=== PATIENT | male | born 1940 | race Caucasian/White ===

== ENCOUNTER 2021-10-19 16:11 | Emergency (ER) | payer MEDICARE, BC, SELFPAY ==
--- NOTE | ~2021-10-19 | XR_ITS ---
EXAMINATION: XR CHEST CLINICAL INFORMATION: Cough COMPARISON: None TECHNIQUE: Frontal view of the chest was obtained. FINDINGS: Lungs are markedly hypoinflated. The right hemidiaphragm is elevated. Surgical clips noted in the left axilla. Left basilar atelectasis is seen. No consolidations, effusions or lung masses are seen. XR/XR chest 1V IMPRESSION: No acute intrathoracic disease. Hypoinflated lungs with elevated right hemidiaphragm.
--- NOTE | 2021-10-19 16:22 | ED_ITS ---
HPI - Back Pain/Injury General Chief Complaint: Back Pain/Injury Stated Complaint: BACK PAIN FROM TREMORS D/T PARKINSONS Time Seen by Provider: 10/19/21 16:18 Source: patient and family Mode of arrival: EMS Limitations: no limitations History of Present Illness HPI Narrative: Patient history of chronic back pain and Parkinson disease complaining of more spasm and low back pain patient already on OxyContin 20 mg 3 times a day and oxycodone every 6 hours no fall no injury no urinary complaints no fever no chills patient seen by a neurologist last week and pramipexole was stopped because of hallucination Related Data Previous Rx's Medication Instructions Recorded carisoprodol 350 mg tablet (Soma) 350 mg PO TID PRN #20 tab 10/19/21 Allergies Allergy/AdvReac Type Severity Reaction Status Date / Time meperidine [Demerol] Allergy Unknown Agitated Verified 10/19/21 16:28 penicillamine [Cuprimine] Allergy Unknown Agitated Verified 10/19/21 16:28 Review of Systems Review of Systems: Yes all other systems are reviewed and are negative [facility] Social History Social History Alcohol intake: unknown Patient Tobacco Use Status: Never used Tobacco Use of substances other than those prescribed or required for medical reasons: No Advance Directives: No Advance Directives Information Provided: No Physical Exam Vital Signs: Vital Signs: Last Vital Signs Temp 97.4 F 10/19/21 18:00 Pulse 74 10/19/21 18:00 Resp 18 10/19/21 18:00 BP 184/97 H 10/19/21 18:00 Pulse Ox 98 10/19/21 18:00 BMI result Body Mass Index 28.8 Appearance: Alert. Oriented X3. No acute distress. Hard of hearing Eyes: No pallor or icterus ENT: Pharynx normal. Oral Mucosa moist Neck: Normal inspection. Neck supple. CVS: Normal heart rate and rhythm. Pulses normal. Respiratory: No respiratory distress. Equal air entry bilateral, no wheezing/rales/rhonchi Abdomen: Soft and nontender. Bowel sounds are present, no mass palpable, no CVA tenderness Skin: Skin warm and dry. Normal skin color. Normal skin turgor. Extremities: No lower extremity edema. No calf tenderness back: Diffuse low back tenderness no step-off sign no focal spinal tenderness no skin changes or rash Neuro: Oriented X 3. No motor deficit. MDM - Back Pain/Injury MDM Narrative Medical decision making narrative: Patient chronic low back pain on pain management comes here for increased lower abdominal pain without any history of trauma or fall pain is nonfocal diffuse area lab workup of urine negative patient felt better after Oxycodone and Soma, will discharge patient home on Soma Lab Data Attestation: I reviewed the patient's lab results. Result diagrams: 10/19/21 17:50 10/19/21 17:50 Labs: Lab Results 10/19/21 10/19/21 10/19/21 Range/Units 17:50 17:50 19:30 WBC 6.6 (4.8-10.8) X10*3/uL RBC 4.17 L (4.60-5.80) X10*6/uL Hgb 12.1 L (14.0-18.0) g/dl Hct 37.3 L (42.0-52.0) % MCV 89.4 (80.0-98.0) fL MCH 29.0 (27.0-33.0) pg MCHC 32.4 (31.0-36.0) g/dl RDW 13.4 (11.0-16.0) % Plt Count 286 (160-400) X10*3/uL MPV 9.3 L (9.4-12.4) fL Immature Gran % (Auto) 0.2 (0.0-0.4) % Neut % (Auto) 70.4 (45-73) % Lymph % (Auto) 17.8 L (20-40) % [place] % (Auto) 6.7 (2-11) % Eos % (Auto) 4.1 H (0-4) % Baso % (Auto) 0.8 (0-2) % Lymph # (Auto) 1.2 (1.2-4.9) X10*3/uL [place] # (Auto) 0.4 (0.1-1.2) X10*3/uL Eos # (Auto) 0.3 (0.0-0.4) X10*3/uL Baso # (Auto) 0.1 (0.0-0.2) X10*3/uL Abs Immat Gran (auto) 0.01 (0.00-0.03) X10*3/uL Absolute Neuts (auto) 4.6 (2.0-8.3) x10*3/uL Absolute Nucleated RBC 0.000 (0.0-0.012) X10*3/uL Nucleated RBC % (auto) 0.0 (0.0-0.2) /100WBC Sodium 141 (135-145) mmol/L Potassium 3.9 (3.3-5.1) mmol/L Chloride 103 (96-108) mmol/L Carbon Dioxide 31 H (22-29) mmol/L Anion Gap 11 L (12-20) BUN 29 H (9-16) mg/dL Creatinine 1.06 (0.5-1.4) mg/dL Estim Creat Clear Calc 54.6 Estimated GFR > 60 Random Glucose 133 H (60-115) mg/dL Calcium 10.1 (8.4-10.2) mg/dL Magnesium 1.9 (1.6-2.6) mg/dL Total Bilirubin 0.5 (0.0-1.0) mg/dL Direct Bilirubin 0.3 (0.0-0.5) mg/dL AST 15 (5-37) U/L ALT 6 (0-40) U/L Alkaline Phosphatase 105 (39-117) U/L Total Creatine Kinase 47 (38-174) U/L Total Protein 7.0 (6.5-8.0) g/dL Albumin 4.1 (3.5-5.0) g/dL Urine Color YELLOW Urine Appearance CLEAR Urine pH 6.5 (5.0-8.0) Ur Specific [place] 1.020 (1.005-1.025) Urine Protein NEG (NEG-TRACE) MG/DL Urine Glucose (UA) NEG (NEG) MG/DL Urine Ketones NEG (NEG) MG/DL Urine Blood NEG (NEG) Urine Nitrite NEG (NEG) Ur Leukocyte Esterase NEG (NEG) Discharge Plan Discharge Clinical Impression: Chronic low back pain Qualifiers: Back pain laterality: bilateral Sciatica presence: with sciatica Sciatica laterality: sciatica of right side Qualified Code(s): M54.41 - Lumbago with sciatica, right side Patient Disposition: Home, Self-Care Instructions: Chronic Back Pain (DC) Additional Instructions: Continue pain medication as prescribed by PCP and pain clinic Start taking Soma for worsening of low back pain Follow-up with your PCP/Pain Clinic Prescriptions: New carisoprodol [Soma] 350 mg tablet 350 mg PO TID PRN (Reason: muscle pain) Qty: 20 RF: 0 Interventions: ED Discharge Assessment Last Done: 10/19/21 20:25 Discharge Date/Time: 10/19/21 20:27
[2021-10-19 16:29] VITALS: BP 102/51; BP 140/80; PULSE 76; PULSE 79; RESP 20; TEMP 36.5; O2SAT 98; BMI 28.8
--- NOTE | 2021-10-19 16:43 | PC.NURSE ---
PEDAL PULSES BY DOPPLER.
[2021-10-19 17:57] LABS: MANUAL DIFF FLAG NO
[2021-10-19 17:59] LABS: Basophils Absolute Auto 0.1 X10*3/uL (0.0-0.2); Basophils Percent Auto 0.8 % (0-2); Eosinophils Absolute Auto 0.3 X10*3/uL (0.0-0.4); Eosinophils Percent Auto 4.1 % (0-4); Hematocrit 37.3 % (42.0-52.0); Hemoglobin 12.1 g/dl (14.0-18.0); Imm Gran Abs Auto 0.01 X10*3/uL (0.00-0.03); Imm Gran Pct Auto 0.2 % (0.0-0.4); Lymphocytes Absolute Auto 1.2 X10*3/uL (1.2-4.9); Lymphocytes Percent Auto 17.8 % (20-40); Mean Corpuscular HGB Conc 32.4 g/dl (31.0-36.0); Mean Corpuscular Volume 89.4 fL (80.0-98.0); Mean Platelet Volume 9.3 fL (9.4-12.4); Monocytes Absolute Auto 0.4 X10*3/uL (0.1-1.2); Monocytes Percent Auto 6.7 % (2-11); Neutrophils Absolute Auto 4.6 x10*3/uL (2.0-8.3); Neutrophils Percent Auto 70.4 % (45-73); Platelet Count 286 X10*3/uL (160-400); Red Blood Count 4.17 X10*6/uL (4.60-5.80); Red Cell Distribution Width 13.4 % (11.0-16.0); White Blood Count 6.6 X10*3/uL (4.8-10.8)
[2021-10-19 18:00] VITALS: BP 184/97; PULSE 74; RESP 18; TEMP 36.3; O2SAT 98
[2021-10-19 18:14] LABS: Alanine Aminotransferase 6 U/L (0-40); Albumin Level 4.1 g/dL (3.5-5.0); Alkaline Phosphatase 105 U/L (39-117); Anion Gap 11 (12-20); Aspartate Amino Transferase 15 U/L (5-37); Bilirubin Direct 0.3 mg/dL (0.0-0.5); Bilirubin Total 0.5 mg/dL (0.0-1.0); Blood Urea Nitrogen 29 mg/dL (9-16); Calcium 10.1 mg/dL (8.4-10.2); Carbon Dioxide 31 mmol/L (22-29); Chloride 103 mmol/L (96-108); Creatinine Clr Calc Pharmacy 54.6; Estimated Glomerular Filt Rate > 60; Glucose Random 133 mg/dL (60-115); Magnesium 1.9 mg/dL (1.6-2.6); Potassium 3.9 mmol/L (3.3-5.1); Sodium 141 mmol/L (135-145)
[2021-10-19] MEDS: oxyCODONE HCl Immed Release 5 MG TABLET 10 MG PO (18:14)
[2021-10-19] MEDS: carisoprodoL 350 MG TABLET PO (18:14)
--- NOTE | 2021-10-19 18:22 | PC.NURSE ---
As per pt's , pt is due for his parkingson's medications. MD Headley made aware and states pt may take those medications.
[2021-10-19 19:44] LABS: Appearance Urine CLEAR; Color Urine YELLOW; Glucose Urine UA NEG (NEG); Leukocyte Esterase Urine NEG (NEG); Nitrite Urine NEG (NEG); PH 6.5 (5.0-8.0); Urine Blood NEG (NEG); Urine Ketones NEG (NEG); Urine Protein NEG (NEG-TRACE)
--- NOTE | 2021-10-19 20:26 | PC.NURSE ---
pt reports no longer having pain. Reviewed discharge plan with and medications. Pt and verbalized understanding.
== END 2021-10-19 20:27 | disposition home or self-care (01) ==
PROVIDERS: Emergency Provider Internal Medicine; PCP Internal Medicine
DX: M54.41 Lumbago with sciatica, right side (principal); G89.29 Other chronic pain; G20 Parkinson's disease; Z79.891 Long term (current) use of opiate analgesic
CPT/HCPCS: 36415; 71045; 80048; 80076; 81003; 82550; 83735; 85025; 99283; 99284

== ENCOUNTER 2022-05-04 22:39 | Inpatient (IN) | payer MEDICARE, BC, SELFPAY ==
--- NOTE | ~2022-05-04 | XR_ITS ---
EXAMINATION: XR hip LT min 2V, XR chest 1V CLINICAL INFORMATION: Reason for Exam fall COMPARISON: None. TECHNIQUE: Portable AP chest; AP pelvis and 2 view series left hip FINDINGS: Left hip: A comminuted intertrochanteric fracture of the left femur is noted with varus angulation. No femoral head dislocation identified. The posterior wall the acetabulum appears intact. Diffuse osteopenia. No erosive osseous lesions. Multilevel chronic spondylosis of the visualized lower lumbar spine. Numerous pelvic phleboliths. Partially visualized electrostimulation generator in projection with the lower abdominal quadrants. CHEST: A right upper extremity PICC terminates in the region of the cavoatrial junction. Thoracic epidural electrostimulation leads terminating projection with the lower thoracic spine. The heart size is normal. Moderate aortic calcific atherosclerosis. Elevation of the right hemidiaphragm. No effusions or pneumothoraces. No focal pulmonary consolidation. Left axillary lymph node dissection clips. XR/XR hip LT min 2V IMPRESSION: Left hip: *Comminuted intertrochanteric fracture with varus angulation. *Diffuse osteopenia. CHEST: *No acute cardiopulmonary abnormalities. *Right upper extremity PICC terminating at the cavoatrial junction.
--- NOTE | ~2022-05-04 | CT_ITS ---
EXAMINATION: CT CERVICAL SPINE WITHOUT CONTRAST; UNENHANCED CT OF THE HEAD. CLINICAL INFORMATION: Fall. COMPARISON: None TECHNIQUE: Routine unenhanced CT of the head with multiple coronal and sagittal reformatted images; routine unenhanced CT of the cervical spine with multiple coronal and sagittal reformatted images. This CT examination was performed using dose optimization techniques as appropriate, variously including the following: *Automated exposure control *Adjustment of mA and/or kV according to patient size (this includes techniques or standardized protocols for targeted exams where dose is matched to indication/reason for exam; i.e. extremities or head) *Use of iterative reconstruction technique DLP: 1314 mGy-cm FINDINGS: CT head: Moderate diffuse commensurate prominence of ventricles and sulci. No intrarenal hemorrhage, tumors or definitive acute infarcts. Mild periventricular white matter patchy hypodensities. Segmental calcific atherosclerosis of the cavernous portions of the internal carotid arteries. Bilateral ocular lens extractions. No significant opacification of the visualized paranasal sinuses, mastoid air cells and middle ear cavities. CT cervical spine: No fractures or acute appearing subluxations noted. Multilevel intervertebral disc space narrowing, posterior endplate osteophytosis and facet hypertrophic changes. Mild biapical pleural parenchymal scarring noted in the visualized lung apices. Moderate bilateral carotid bulb calcific atherosclerosis. Partially visualized right upper extremity PICC. CT/CT cervical spine wo con IMPRESSION: Unenhanced CT the head: *No acute intercranial abnormalities. CT cervical spine: *No acute abnormalities. *Multilevel chronic spondylosis.
--- NOTE | ~2022-05-04 | CT_ITS ---
EXAMINATION: CT CERVICAL SPINE WITHOUT CONTRAST; UNENHANCED CT OF THE HEAD. CLINICAL INFORMATION: Fall. COMPARISON: None TECHNIQUE: Routine unenhanced CT of the head with multiple coronal and sagittal reformatted images; routine unenhanced CT of the cervical spine with multiple coronal and sagittal reformatted images. This CT examination was performed using dose optimization techniques as appropriate, variously including the following: *Automated exposure control *Adjustment of mA and/or kV according to patient size (this includes techniques or standardized protocols for targeted exams where dose is matched to indication/reason for exam; i.e. extremities or head) *Use of iterative reconstruction technique DLP: 1314 mGy-cm FINDINGS: CT head: Moderate diffuse commensurate prominence of ventricles and sulci. No intrarenal hemorrhage, tumors or definitive acute infarcts. Mild periventricular white matter patchy hypodensities. Segmental calcific atherosclerosis of the cavernous portions of the internal carotid arteries. Bilateral ocular lens extractions. No significant opacification of the visualized paranasal sinuses, mastoid air cells and middle ear cavities. CT cervical spine: No fractures or acute appearing subluxations noted. Multilevel intervertebral disc space narrowing, posterior endplate osteophytosis and facet hypertrophic changes. Mild biapical pleural parenchymal scarring noted in the visualized lung apices. Moderate bilateral carotid bulb calcific atherosclerosis. Partially visualized right upper extremity PICC. CT/CT head/brain wo con IMPRESSION: Unenhanced CT the head: *No acute intercranial abnormalities. CT cervical spine: *No acute abnormalities. *Multilevel chronic spondylosis.
--- NOTE | ~2022-05-04 | XR_ITS ---
EXAMINATION: XR hip LT min 2V, XR chest 1V CLINICAL INFORMATION: Reason for Exam fall COMPARISON: None. TECHNIQUE: Portable AP chest; AP pelvis and 2 view series left hip FINDINGS: Left hip: A comminuted intertrochanteric fracture of the left femur is noted with varus angulation. No femoral head dislocation identified. The posterior wall the acetabulum appears intact. Diffuse osteopenia. No erosive osseous lesions. Multilevel chronic spondylosis of the visualized lower lumbar spine. Numerous pelvic phleboliths. Partially visualized electrostimulation generator in projection with the lower abdominal quadrants. CHEST: A right upper extremity PICC terminates in the region of the cavoatrial junction. Thoracic epidural electrostimulation leads terminating projection with the lower thoracic spine. The heart size is normal. Moderate aortic calcific atherosclerosis. Elevation of the right hemidiaphragm. No effusions or pneumothoraces. No focal pulmonary consolidation. Left axillary lymph node dissection clips. XR/XR chest 1V IMPRESSION: Left hip: *Comminuted intertrochanteric fracture with varus angulation. *Diffuse osteopenia. CHEST: *No acute cardiopulmonary abnormalities. *Right upper extremity PICC terminating at the cavoatrial junction.
--- NOTE | ~2022-05-04 | FL_ITS ---
EXAMINATION: XR FLUOROSCOPY WITH IMAGES CLINICAL INFORMATION: Hip fracture COMPARISON: Previous x-ray from earlier the same day TECHNIQUE: Fluoroscopy performed by Dr. Chintan Pearce. Fluoroscopy time: 0.6 minutes DAP: 0.3 mGycm2 Images: 4 FINDINGS: There is an intramedullary lainey and compression/lag screw and single distal cortical screw transfixing the left femoral intertrochanteric fracture with improved alignment. FL/FL guidance in OR IMPRESSION: Fluoroscopic guidance for ORIF of left femoral intertrochanteric fracture.
[2022-05-04 23:03] VITALS: BP 108/64; BP 126/63; PULSE 71; PULSE 78; RESP 18; TEMP 36.4; O2SAT 96; O2SAT 97; BMI 23.8
--- NOTE | 2022-05-04 23:16 | ECG_ITS ---
Test Reason : PRE OP Blood Pressure : / mmHG Vent. Rate : 071 BPM Atrial Rate : 071 BPM P-R Int : 146 ms QRS Dur : 092 ms QT Int : 398 ms P-R-T Axes : 000 040 060 degrees QTc Int : 432 ms Sinus rhythm with marked sinus arrhythmia Otherwise normal ECG No previous ECGs available Referred By: Janiya Galindo Electronically Signed By:FARZAD ESPAÑA MD
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
[2022-05-05] VITALS (11 sets, daily range): BP systolic 128–172; BP diastolic 61–82; PULSE 68–89; RESP 16–18; TEMP 36.4–37.6; O2SAT 94–100
[2022-05-05] MEDS: Morphine Sulfate 4 MG/ML CARTRIDGE IVPUSH ×2 (00:59→02:46)
[2022-05-05] MEDS: ondansetron HCL 4 MG/2 ML VIAL IVPUSH ×2 (01:00→02:46)
[2022-05-05 01:18] LABS: Basophils Percent Auto 0.2 % (0-2); Eosinophils Absolute Auto 0.5 X10*3/uL (0.0-0.4); Eosinophils Percent Auto 5.2 % (0-4); Hematocrit 33.5 % (42.0-52.0); Hemoglobin 10.8 g/dl (14.0-18.0); Imm Gran Abs Auto 0.04 X10*3/uL (0.00-0.03); Imm Gran Pct Auto 0.4 % (0.0-0.4); Lymphocytes Absolute Auto 1.1 X10*3/uL (1.2-4.9); Lymphocytes Percent Auto 11.7 % (20-40); MANUAL DIFF FLAG NO; Mean Corpuscular HGB Conc 32.2 g/dl (31.0-36.0); Mean Corpuscular Hemoglobin 28.5 pg (27.0-33.0); Mean Corpuscular Volume 88.4 fL (80.0-98.0); Monocytes Absolute Auto 0.7 X10*3/uL (0.1-1.2); Neutrophils Percent Auto 75.5 % (45-73); Platelet Count 270 X10*3/uL (160-400); Red Blood Count 3.79 X10*6/uL (4.60-5.80); Red Cell Distribution Width 13.8 % (11.0-16.0); White Blood Count 9.3 X10*3/uL (4.8-10.8)
[2022-05-05 01:29] LABS: Lactic Acid 0.9 mmol/L (0.5-2.0)
[2022-05-05 01:31] LABS: INTERNATIONAL NORM RATIO 1.1 (0.9-1.1)
[2022-05-05] MEDS: Acetaminophen Oral Liquid 650 MG/20.3 ML SOLUTION PO (01:32)
[2022-05-05 01:37] LABS: Troponin-I High Sensitivity 7.9 ng/L (<3.5-35.0)
[2022-05-05 01:39] LABS: Alanine Aminotransferase < 6 U/L (0-40); Albumin Level 3.6 g/dL (3.5-5.0); Alkaline Phosphatase 91 U/L (39-117); Anion Gap 12 (12-20); Aspartate Amino Transferase 16 U/L (5-37); Bilirubin Direct 0.4 mg/dL (0.0-0.5); Bilirubin Total 0.7 mg/dL (0.0-1.0); Blood Urea Nitrogen 19 mg/dL (9-16); Calcium 9.3 mg/dL (8.4-10.2); Carbon Dioxide 26 mmol/L (22-29); Chloride 106 mmol/L (96-108); Creatinine Clr Calc Pharmacy 61.9; Estimated Glomerular Filt Rate > 60; Glucose Random 122 mg/dL (60-115); Lipase 14 U/L (8-78); Magnesium 2.1 mg/dL (1.6-2.6); Potassium 3.9 mmol/L (3.3-5.1); Sodium 140 mmol/L (135-145); Total Protein 5.8 g/dL (6.5-8.0)
[2022-05-05 01:42] LABS: COVID-19 Test Negative (Negative)
--- NOTE | 2022-05-05 02:13 | PC.NURSE ---
pt provided perineal care & linen change, pt and family member requesting campos catheter placement, verbal order from MD clayton for campos catheter placement.
[2022-05-05 02:24] LABS: Appearance Urine HAZY; Color Urine DK YELLOW; Glucose Urine UA NEG (NEG); Leukocyte Esterase Urine NEG (NEG); Nitrite Urine NEG (NEG); Specific Gravity - Urine >= 1.030 (1.005-1.025); UACC Culture Trigger NO; Urine Blood 1+ (NEG); Urine Ketones 15 MG/DL (NEG); Urine Protein 2+ MG/DL (NEG-TRACE)
[2022-05-05 02:34] LABS: Bacteria Urine 2+ /LPF; Hyaline Casts Urine 0-2 /LPF; Mucus Urine 2+ /LPF; Sperm Urine NOTED; Squamous Epithelial Cell Urine 1+ /LPF
[2022-05-05] MEDS: HYDROmorphone HCl 0.5 MG/0.5 ML SYRINGE IVPUSH ×4 (03:46→19:06)
--- NOTE | 2022-05-05 05:19 | P.HPHOSP_ITS ---
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 Patient was in significant pain, he is currently sleeping after receiving Dilaudid for pain for id therefore History is obtained from ED physician as well as granddaughter at bedside.I also spoke to daughter over the phone, who reports that he was discharged this same day from [facility] for treatment of MAC and was on heavy duty medications that made him very weak and worsened his parisons symptoms. It appears the patient had an unwitnessed fall at the intermediate, unclear how it happened but he was trying to go to the bathroom. Arrival to the ED patient hemodynamically stable with no significant abnormal vitals Labs are significant for WBC count of 9.3, hemoglobin of 10.8, hematocrit 33.5, otherwise unremarkable. Imaging showed left hip comminuted intertrochanteric fracture with varus angulation Patient will be admitted for further management Review of Systems Review of Systems: Yes Unobtainable due to mental condition and Unobtainable due to mental status PMFSH Medical History (Updated 05/05/22 @ 05:34 by Hermelinda Kumari MD) Dementia Dysphagia, unspecified Epilepsy Essential (primary) hypertension Low back pain, unspecified Mycobacterium avium complex Parkinson's disease Family History (Updated 05/05/22 @ 05:27 by Hermelinda Kumari MD) Other No family history of coronary artery disease Surgical History (Updated 05/05/22 @ 05:27 by Hermelinda Kumari MD) No pertinent past surgical history Social History (Updated 05/05/22 @ 05:27 by Hermelinda Kumari MD) Alcohol intake: unknown Patient Tobacco Use Status: Never used Tobacco Use of substances other than those prescribed or required for medical reasons: No Advance Directives: No Meds Allergies Allergy/AdvReac Type Severity Reaction Status Date / Time meperidine [Demerol] Allergy Unknown Agitated Verified 05/04/22 23:02 penicillamine [Cuprimine] Allergy Unknown Agitated Verified 05/04/22 23:02 Active Medications: Current Medications Acetaminophen (Acetaminophen 325 Mg Tablet) 650 mg PO Q6H PRN PRN Reason: Pain, Mild (Pain Scale 1-3) Hydromorphone HCl (Hydromorphone Hcl 0.5 Mg/0.5 Ml Syringe) 0.5 mg IVPUSH Q4H PRN; Protocol PRN Reason: Pain, Severe (Pain Scale 7-10) Last Admin: 05/05/22 03:46 Dose: 0.5 mg Ondansetron HCl (Ondansetron Hcl 4 Mg/2 Ml Vial) 4 mg IVPUSH Q8H PRN PRN Reason: Nausea and Vomiting Last Admin: 05/05/22 02:46 Dose: 4 mg Sodium Chloride (0.9 % Sodium Chloride Flush 3 Ml Syringe) 3 ml [facility]FLUSH [facility] Physical Exam Vital Signs and Narrative: Vital Signs: Last Vital Signs Temp 97.5 F 05/04/22 23:03 Pulse 80 05/05/22 05:09 Resp 16 05/05/22 00:59 BP 134/65 05/05/22 03:48 Pulse Ox 96 05/05/22 05:09 O2 Del Method 05/05/22 05:09 Oxygen Flow Rate 2 05/04/22 23:03 BMI result Body Mass Index 23.8 Const: Other: Patient is sleeping comfortably, does not appear to be in distress Eyes: General: appearance normal, both eyes and all related structures Resp: Effort & Inspection: normal respiratory effort Auscultation: clear to auscultation bilaterally Cardio: Rate: regular rate Rhythm: regular rhythm GI: Palpation (GI): Soft to palpation Auscultation: normal bowel sounds Skin: General skin exam: no rashes or lesions noted Extrem: Other: left lower extremity showrtened and externally rotated General: Yes no pedal edema Results Labs CBC and Chem 7: 05/05/22 01:13 05/05/22 01:13 Labs: Laboratory Results - last 24 hr 05/05/22 05/05/22 05/05/22 01:13 01:13 01:13 MCV 88.4 MCH 28.5 MCHC 32.2 RDW 13.8 Plt Count 270 MPV 9.0 L Immature Gran % (Auto) 0.4 Neut % (Auto) 75.5 H Lymph % (Auto) 11.7 L [place] % (Auto) 7.0 Eos % (Auto) 5.2 H Baso % (Auto) 0.2 Lymph # (Auto) 1.1 L [place] # (Auto) 0.7 Eos # (Auto) 0.5 H Baso # (Auto) 0.0 Abs Immat Gran (auto) 0.04 H Absolute Neuts (auto) 7.0 Absolute Nucleated RBC 0.000 Nucleated RBC % (auto) 0.0 PT 12.0 INR 1.1 Anion Gap 12 Estim Creat Clear Calc 61.9 Estimated GFR > 60 Random Glucose 122 H Lactic Acid Calcium 9.3 D Magnesium 2.1 Total Bilirubin 0.7 Direct Bilirubin 0.4 AST 16 ALT < 6 Alkaline Phosphatase 91 Total Creatine Kinase 71 D Troponin I High Sens Total Protein 5.8 L Albumin 3.6 Lipase 14 Urine Color Urine Appearance Urine pH Ur Specific [place] Urine Protein Urine Glucose (UA) Urine Ketones Urine Blood Urine Nitrite Ur Leukocyte Esterase Urine RBC Urine WBC Ur Squamous Epith Cells Urine Bacteria Hyaline Casts Urine Mucus Urine Sperm COVID-19 ([facility]) COVID-19 Clin Com 05/05/22 05/05/22 05/05/22 01:13 01:13 01:13 MCV MCH MCHC RDW Plt Count MPV Immature Gran % (Auto) Neut % (Auto) Lymph % (Auto) [place] % (Auto) Eos % (Auto) Baso % (Auto) Lymph # (Auto) [place] # (Auto) Eos # (Auto) Baso # (Auto) Abs Immat Gran (auto) Absolute Neuts (auto) Absolute Nucleated RBC Nucleated RBC % (auto) PT INR Anion Gap Estim Creat Clear Calc Estimated GFR Random Glucose Lactic Acid 0.9 Calcium Magnesium Total Bilirubin Direct Bilirubin AST ALT Alkaline Phosphatase Total Creatine Kinase Troponin I High Sens 7.9 Total Protein Albumin Lipase Urine Color Urine Appearance Urine pH Ur Specific [place] Urine Protein Urine Glucose (UA) Urine Ketones Urine Blood Urine Nitrite Ur Leukocyte Esterase Urine RBC Urine WBC Ur Squamous Epith Cells Urine Bacteria Hyaline Casts Urine Mucus Urine Sperm COVID-19 ([facility]SE[facility]) Negative COVID-19 Clin Com See Note 05/05/22 02:17 MCV MCH MCHC RDW Plt Count MPV Immature Gran % (Auto) Neut % (Auto) Lymph % (Auto) [place] % (Auto) Eos % (Auto) Baso % (Auto) Lymph # (Auto) [place] # (Auto) Eos # (Auto) Baso # (Auto) Abs Immat Gran (auto) Absolute Neuts (auto) Absolute Nucleated RBC Nucleated RBC % (auto) PT INR Anion Gap Estim Creat Clear Calc Estimated GFR Random Glucose Lactic Acid Calcium Magnesium Total Bilirubin Direct Bilirubin AST ALT Alkaline Phosphatase Total Creatine Kinase Troponin I High Sens Total Protein Albumin Lipase Urine Color DK YELLOW Urine Appearance HAZY Urine pH 6.0 Ur Specific [place] >= 1.030 H Urine Protein 2+ H Urine Glucose (UA) NEG Urine Ketones 15 Urine Blood 1+ H Urine Nitrite NEG Ur Leukocyte Esterase NEG Urine RBC 15-29 H Urine WBC 1-4 Ur Squamous Epith Cells 1+ Urine Bacteria 2+ Hyaline Casts 0-2 Urine Mucus 2+ Urine Sperm NOTED COVID-19 ([facility]SE[facility]) COVID-19 Clin Com Imaging Radiologist's Impressions: Impressions Chest X-Ray 05/05/22 00:29 IMPRESSION: Left hip: *Comminuted intertrochanteric fracture with varus angulation. *Diffuse osteopenia. CHEST: *No acute cardiopulmonary abnormalities. *Right upper extremity PICC terminating at the cavoatrial junction. Hip X-Ray 05/05/22 00:29 IMPRESSION: Left hip: *Comminuted intertrochanteric fracture with varus angulation. *Diffuse osteopenia. CHEST: *No acute cardiopulmonary abnormalities. *Right upper extremity PICC terminating at the cavoatrial junction. Cervical Spine CT 05/05/22 00:30 IMPRESSION: Unenhanced CT the head: *No acute intercranial abnormalities. CT cervical spine: *No acute abnormalities. *Multilevel chronic spondylosis. Head CT 05/05/22 00:30 IMPRESSION: Unenhanced CT the head: *No acute intercranial abnormalities. CT cervical spine: *No acute abnormalities. *Multilevel chronic spondylosis. Assessment and Plan (1) Closed intertrochanteric fracture: Qualifiers: Encounter type: initial encounter Fracture alignment: displaced Laterality: left Qualified Code(s): S72.142A - Displaced intertrochanteric fracture of left femur, initial encounter for closed fracture Status: Acute (2) Mycobacterium avium infection: Status: Acute Plan 81-year-old male past medical history of Parkinson's dementia, recently garrick gnosed my Bactrim AVM, HTN,[facility] # Left hip fracture - After a fall - daughter reports pt has been weak due to initiation of new meds to treat MAC - Xray of hip as above - Ortho consulted - pain control # MAC - Daughter reports that they no longer want pt treated for it as he has significant weakness and worsening parkisonian symptoms from these meds - she is adamanet that this desicion was made with discussion with pt and the whole family - they want PICC also removed - Antibiotics will be stopped # HTN - Stable - will resume home meds # Parkinson's disease - Continue home meds DVT prophylaxis: Lovenox Given the left hip fracture, patient will require a minimum 2 night hospital stay for further management and evaluation by Orthopedics Quality Stroke Does the patient have a stroke diagnosis?: No VTE Prior VTE?: No VTE Risk Level:: Medical - low VTE Device Contraindication: N/A - Device Ordered VTE Drug Contraindication: Treatment Not Indicated
[2022-05-05 07:01] LABS: MANUAL DIFF FLAG NO
[2022-05-05 07:08] LABS: Basophils Percent Auto 0.2 % (0-2); Eosinophils Absolute Auto 0.2 X10*3/uL (0.0-0.4); Eosinophils Percent Auto 2.3 % (0-4); Imm Gran Abs Auto 0.03 X10*3/uL (0.00-0.03); Imm Gran Pct Auto 0.3 % (0.0-0.4); Lymphocytes Absolute Auto 0.9 X10*3/uL (1.2-4.9); Lymphocytes Percent Auto 9.9 % (20-40); Mean Corpuscular HGB Conc 32.3 g/dl (31.0-36.0); Mean Corpuscular Hemoglobin 28.9 pg (27.0-33.0); Mean Corpuscular Volume 89.6 fL (80.0-98.0); Mean Platelet Volume 9.4 fL (9.4-12.4); Monocytes Absolute Auto 0.7 X10*3/uL (0.1-1.2); Monocytes Percent Auto 7.2 % (2-11); Neutrophils Absolute Auto 7.4 x10*3/uL (2.0-8.3); Neutrophils Percent Auto 80.1 % (45-73); Platelet Count 265 X10*3/uL (160-400); Red Blood Count 3.46 X10*6/uL (4.60-5.80); Red Cell Distribution Width 13.8 % (11.0-16.0); White Blood Count 9.3 X10*3/uL (4.8-10.8)
[2022-05-05 07:34] LABS: Anion Gap 11 (12-20); Blood Urea Nitrogen 19 mg/dL (9-16); Calcium 8.9 mg/dL (8.4-10.2); Carbon Dioxide 27 mmol/L (22-29); Chloride 107 mmol/L (96-108); Creatinine Clr Calc Pharmacy 67.1; Estimated Glomerular Filt Rate > 60; Glucose Random 128 mg/dL (60-115); Potassium 4.1 mmol/L (3.3-5.1); Sodium 141 mmol/L (135-145)
[2022-05-05] MEDS: 0.9 % Sodium Chloride Flush 3 ML SYRINGE IVFLUSH (07:40)
--- NOTE | 2022-05-05 08:38 | PC.NURSE ---
per dr mcnulty, pt to be NPO pending ortho/surgery consult
--- NOTE | 2022-05-05 08:56 | PC.NURSE ---
per pts family, pt on a soft/puree diets d/t hx of dysphagia, unknown liquid consistence. per dr. mcnulty, plan to order swallow eval for after surgery on L hip.
--- NOTE | 2022-05-05 10:03 | PHA.MEDREC ---
Pharmacy Consult ? Medication Reconciliation Pharmacy has completed the medication reconciliation. Patient has list in chart from [facility]; amikacin was listed as a start date of 05/04/22. Pt also had rifampin 600mg PO daily @1800, azithromycin 250mg PO QD, and ethambutol 1200mg PO daily @1200 listed to be started today on 05/05/22.
--- NOTE | 2022-05-05 11:03 | PM.EVENT ---
Event Note Date of Service: 05/05/22 Event Note: Seen/examined. Admitted this morning with hip fracture and planned for surgery tomorrow, o/w A/P per H and P from this morning
--- NOTE | 2022-05-05 11:12 | PC.NURSE ---
plan for surgery tomorrow per dr mcnulty. ok to eat until midnight
--- NOTE | 2022-05-05 11:58 | P.CONOP_ITS ---
History of Present Illness HPI Consult date: 05/05/22 Chief complaint: Left hip fracture Narrative: 81 yo male who presented to the ED late last night for an injury he sustained to his left hip. 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 Currently, the family does not want continued treatment for this as the medications are interfering with his Parkinsons. He does have a significant PMH for parkinsons and early dementia, HTN , HLD. Report from [facility] mentions the patient had an unwitnessed fall, but thought to have been trying to go to the bathroom. Evaluation in the ED was significant for left hip intertrochanteric fracture. He was admitted to the medical service and orthopedics was consulted for further recommendations. Review of Systems Review of Systems: per [facility] Past Medical History Medical History (Updated 05/05/22 @ 05:34 by Hermelinda Kumari MD) Dementia Dysphagia, unspecified Epilepsy Essential (primary) hypertension Low back pain, unspecified Mycobacterium avium complex Parkinson's disease Family History Family History (Updated 05/05/22 @ 05:27 by Hermelinda Kumari MD) Other No family history of coronary artery disease Surgical History Surgical History (Updated 05/05/22 @ 05:27 by Hermelinda Kumari MD) No pertinent past surgical history Social History Social History (Updated 05/05/22 @ 05:27 by Hermelinda Kumari MD) Alcohol intake: unknown Patient Tobacco Use Status: Never used Tobacco Use of substances other than those prescribed or required for medical reasons: No Advance Directives: No Meds Allergies Allergy/AdvReac Type Severity Reaction Status Date / Time meperidine [Demerol] Allergy Unknown Agitated Verified 05/04/22 23:02 penicillamine [Cuprimine] Allergy Unknown Agitated Verified 05/04/22 23:02 Active Medications: Current Medications Acetaminophen (Acetaminophen 325 Mg Tablet) 650 mg PO Q6H PRN PRN Reason: Pain, Mild (Pain Scale 1-3) Hydromorphone HCl (Hydromorphone Hcl 0.5 Mg/0.5 Ml Syringe) 0.5 mg IVPUSH Q4H PRN; Protocol PRN Reason: Pain, Severe (Pain Scale 7-10) Last Admin: 05/05/22 07:39 Dose: 0.5 mg Cefazolin Sodium/Dextrose (Ancef) 2 gm in 50 mls @ 100 mls/hr IV PREOP ONE Stop: 05/05/22 12:25 Ondansetron HCl (Ondansetron Hcl 4 Mg/2 Ml Vial) 4 mg IVPUSH Q8H PRN PRN Reason: Nausea and Vomiting Last Admin: 05/05/22 02:46 Dose: 4 mg Sodium Chloride (0.9 % Sodium Chloride Flush 3 Ml Syringe) 3 ml IVFLUSH [facility] Last Admin: 05/05/22 07:40 Dose: 3 ml Home Medications Medication Instructions Recorded Confirmed Last Taken Type acetaminophen 325 mg tablet 650 mg PO Q6H PRN Fever 05/05/22 05/05/22 Unknown History albuterol sulfate 90 mcg/actuation 1 puff inhalation Q4H PRN 05/05/22 05/05/22 Unknown History aerosol inhaler Shortness Of Breath amikacin 500 mg/2 mL injection 1,000 mg IV MOWEFR@1300 05/05/22 05/05/22 Unknown History solution amlodipine 5 mg tablet 1 tab PO DAILY 05/05/22 05/05/22 Unknown History aspirin 81 mg chewable tablet 81 mg PO DAILY 05/05/22 05/05/22 Unknown History bisacodyl 10 mg rectal suppository 10 mg VT DAILY PRN Constipation 05/05/22 05/05/22 Unknown History carbidopa 25 mg-levodopa 100 mg 1 tab PO DAILY@0700,1000,1300 05/05/22 05/05/22 Unknown History tablet carbidopa 25 mg-levodopa 100 mg 1 tab PO DAILY@1600,1900 05/05/22 05/05/22 Unknown History tablet carbidopa ER 50 mg-levodopa 200 mg 1 tab PO BEDTIME 05/05/22 05/05/22 Unknown History tablet,extended release carisoprodol 350 mg tablet 1 tab PO TID PRN Spasms 05/05/22 05/05/22 Unknown History entacapone 200 mg tablet 1 tab PO DAILY@0700,1300,1600 05/05/22 05/05/22 Unknown History entacapone 200 mg tablet 1 tab PO DAILY@2000 05/05/22 05/05/22 Unknown History hydrochlorothiazide 25 mg tablet 1 tab PO DAILY 05/05/22 05/05/22 Unknown History levetiracetam 500 mg tablet 1 tab PO BID 05/05/22 05/05/22 Unknown History levothyroxine 75 mcg tablet 1 tab PO DAILY@0600 05/05/22 05/05/22 Unknown History lorazepam 0.5 mg tablet 1 tab PO BEDTIME PRN Anxiety 05/05/22 05/05/22 Unknown History losartan 100 mg tablet 100 mg PO DAILY 05/05/22 05/05/22 Unknown History magnesium hydroxide 400 mg/5 mL 30 ml PO DAILY PRN Constipation 05/05/22 05/05/22 Unknown History oral suspension (Milk of Magnesia) oxycodone-acetaminophen 5 mg-325 1 tab PO Q6H PRN pain 05/05/22 05/05/22 Unknown History mg tablet potassium chloride 10 mEq 10 meq PO DAILY 05/05/22 05/05/22 Unknown History capsule,extended release selegiline HCl 5 mg tablet 1 tab PO BID 05/05/22 05/05/22 Unknown History sodium phosphates 19 gram-7 118 ml [place] DAILY PRN Constipation 05/05/22 05/05/22 Unknown History gram/118 mL enema (Fleet Enema) venlafaxine 75 mg capsule,extended 1 cap PO DAILY 05/05/22 05/05/22 Unknown History release 24 hr Physical Exam Vital Signs: Vital Signs: Last Vital Signs Temp 97.5 F 05/04/22 23:03 Pulse 80 05/05/22 05:09 Resp 16 05/05/22 00:59 BP 134/65 05/05/22 03:48 Pulse Ox 96 05/05/22 05:09 O2 Del Method 05/05/22 05:09 Oxygen Flow Rate 2 05/04/22 23:03 BMI result Body Mass Index 23.8 Const: General: cooperative, healthy appearing, comfortable, no acute distress, well developed and alert Orientation/consciousness: patient oriented x3 HEENT: Head: Yes normal to inspection, Yes normocephalic and Yes atraumatic Eyes: General: appearance normal, both eyes and all related structures Neck: Neck: Yes normal visual inspection and Yes no lymphadenopathy Resp: Effort & Inspection: normal respiratory effort and able to speak in complete sentences Cardio: Rate: regular rate Peripheral pulses: Peripheral pulses 2+ throughout GI: Inspection: Yes normal to inspection Palpation (GI): Soft to palpation Skin: General skin exam: no rashes or lesions noted Neuro: General: patient oriented x3 Extrem: Other: left hip skin intact, pain with log roll, unable to SLR. NVI. Psych: Appearance: grossly normal Mental Status: mental status grossly normal Results Labs Result Diagrams: 05/05/22 05:57 05/05/22 05:57 Labs: Abnormal lab results 05/05/22 05/05/22 05/05/22 Range/Units 01:13 01:13 02:17 RBC 3.79 L (4.60-5.80) X10*6/uL Hgb 10.8 L (14.0-18.0) g/dl Hct 33.5 L (42.0-52.0) % MPV 9.0 L (9.4-12.4) fL Neut % (Auto) 75.5 H (45-73) % Lymph % (Auto) 11.7 L (20-40) % Eos % (Auto) 5.2 H (0-4) % Lymph # (Auto) 1.1 L (1.2-4.9) X10*3/uL Eos # (Auto) 0.5 H (0.0-0.4) X10*3/uL Abs Immat Gran (auto) 0.04 H (0.00-0.03) X10*3/uL Anion Gap (12-20) BUN 19 H (9-16) mg/dL Random Glucose 122 H (60-115) mg/dL Total Protein 5.8 L (6.5-8.0) g/dL Ur Specific [place] >= 1.030 H (1.005-1.025) Urine Protein 2+ H (NEG-TRACE) MG/DL Urine Blood 1+ H (NEG) Urine RBC 15-29 H (0) /HPF 05/05/22 05/05/22 Range/Units 05:57 05:57 RBC 3.46 L (4.60-5.80) X10*6/uL Hgb 10.0 L (14.0-18.0) g/dl Hct 31.0 L (42.0-52.0) % MPV (9.4-12.4) fL Neut % (Auto) 80.1 H (45-73) % Lymph % (Auto) 9.9 L (20-40) % Eos % (Auto) (0-4) % Lymph # (Auto) 0.9 L (1.2-4.9) X10*3/uL Eos # (Auto) (0.0-0.4) X10*3/uL Abs Immat Gran (auto) (0.00-0.03) X10*3/uL Anion Gap 11 L (12-20) BUN 19 H (9-16) mg/dL Random Glucose 128 H (60-115) mg/dL Total Protein (6.5-8.0) g/dL Ur Specific [place] (1.005-1.025) Urine Protein (NEG-TRACE) MG/DL Urine Blood (NEG) Urine RBC (0) /HPF H & H 05/05/22 05/05/22 Range/Units 01:13 05:57 Hgb 10.8 L 10.0 L (14.0-18.0) g/dl Hct 33.5 L 31.0 L (42.0-52.0) % Coagulation 05/05/22 Range/Units 01:13 INR 1.1 (0.9-1.1) All other labs normal. Diagnostic results Hip x-ray: image reviewed (left hip intertrochanteric fracture) Assessment and Plan (1) Closed intertrochanteric fracture: Qualifiers: Encounter type: initial encounter Fracture alignment: displaced Laterality: left Qualified Code(s): S72.142A - Displaced intertrochanteric fracture of left femur, initial encounter for closed fracture Status: Acute Plan I discussed the case with Dr Pearce and explained the extent of the injury to the patient's daughter and at length and options available which include surgical intervention. I explained the procedure in detail along with the length of recovery and rehab course. I explained the risk, benefits and alternatives. Risk including, but not limited to infection, blood clots, bleeding, non union or malunion and nerve/tissue damage to surrounding areas. I answered all their questions and with their understanding they have consented to move forward with Operative Fixation of the left femur. The patient will be T&S, med clearance obtained and NPO. The is his HCP and can sign consents Procedures Date of Service Date of Service: 05/05/22
--- NOTE | 2022-05-05 15:11 | HO.ANESPROP2 ---
HPI - Anesthesia Eval Consult details Narrative: left femur fracture PMFSH Active Problems Active Problems: All Active Problems (Updated 05/05/22 @ 05:34 by Hermelinda Kumari MD) Mycobacterium avium infection (Acute) Closed intertrochanteric fracture (Acute) Past Medical History Medical History (Updated 05/05/22 @ 05:34 by Hermelinda Kumari MD) Dementia Dysphagia, unspecified Epilepsy Essential (primary) hypertension Low back pain, unspecified Mycobacterium avium complex Parkinson's disease Family History Family History (Updated 05/05/22 @ 05:27 by Hermelinda Kumari MD) Other No family history of coronary artery disease Family history of problems with anesthesia: No Surgical History Surgical History (Updated 05/05/22 @ 05:27 by Hermelinda Kumari MD) No pertinent past surgical history History of Problems with Anesthesia: No Social History Social History (Updated 05/05/22 @ 05:27 by Hermelinda Kumari MD) Alcohol intake: unknown Patient Tobacco Use Status: Never used Tobacco Meds Allergies Allergy/AdvReac Type Severity Reaction Status Date / Time meperidine [Demerol] Allergy Unknown Agitated Verified 05/04/22 23:02 penicillamine [Cuprimine] Allergy Unknown Agitated Verified 05/04/22 23:02 Active Medications: Current Medications Acetaminophen (Acetaminophen 325 Mg Tablet) 650 mg PO Q6H PRN PRN Reason: Pain, Mild (Pain Scale 1-3) Hydromorphone HCl (Hydromorphone Hcl 0.5 Mg/0.5 Ml Syringe) 0.5 mg IVPUSH Q4H PRN; Protocol PRN Reason: Pain, Severe (Pain Scale 7-10) Last Admin: 05/05/22 12:49 Dose: 0.5 mg Ondansetron HCl (Ondansetron Hcl 4 Mg/2 Ml Vial) 4 mg IVPUSH Q8H PRN PRN Reason: Nausea and Vomiting Last Admin: 05/05/22 02:46 Dose: 4 mg Oxycodone HCl (Oxycodone Hcl Immed Release 5 Mg Tablet) 5 mg PO Q4H PRN PRN Reason: Pain, Moderate (Pain Scale 4-6 Sodium Chloride (0.9 % Sodium Chloride Flush 3 Ml Syringe) [facility] Last Admin: 05/05/22 07:40 Dose: 3 ml Home Medications Medication Instructions Recorded Confirmed Last Taken Type acetaminophen 325 mg tablet 650 mg PO Q6H PRN Fever 05/05/22 05/05/22 Unknown History albuterol sulfate 90 mcg/actuation 1 puff inhalation Q4H PRN 05/05/22 05/05/22 Unknown History aerosol inhaler Shortness Of Breath amikacin 500 mg/2 mL injection 1,000 mg IV MOWEFR@1300 05/05/22 05/05/22 Unknown History solution amlodipine 5 mg tablet 1 tab PO DAILY 05/05/22 05/05/22 Unknown History aspirin 81 mg chewable tablet 81 mg PO DAILY 05/05/22 05/05/22 Unknown History bisacodyl 10 mg rectal suppository 10 mg HI DAILY PRN Constipation 05/05/22 05/05/22 Unknown History carbidopa 25 mg-levodopa 100 mg 1 tab PO DAILY@0700,1000,1300 05/05/22 05/05/22 Unknown History tablet carbidopa 25 mg-levodopa 100 mg 1 tab PO DAILY@1600,1900 05/05/22 05/05/22 Unknown History tablet carbidopa ER 50 mg-levodopa 200 mg 1 tab PO BEDTIME 05/05/22 05/05/22 Unknown History tablet,extended release carisoprodol 350 mg tablet 1 tab PO TID PRN Spasms 05/05/22 05/05/22 Unknown History entacapone 200 mg tablet 1 tab PO DAILY@0700,1300,1600 05/05/22 05/05/22 Unknown History entacapone 200 mg tablet 1 tab PO DAILY@2000 05/05/22 05/05/22 Unknown History hydrochlorothiazide 25 mg tablet 1 tab PO DAILY 05/05/22 05/05/22 Unknown History levetiracetam 500 mg tablet 1 tab PO BID 05/05/22 05/05/22 Unknown History levothyroxine 75 mcg tablet 1 tab PO DAILY@0600 05/05/22 05/05/22 Unknown History lorazepam 0.5 mg tablet 1 tab PO BEDTIME PRN Anxiety 05/05/22 05/05/22 Unknown History losartan 100 mg tablet 100 mg PO DAILY 05/05/22 05/05/22 Unknown History magnesium hydroxide 400 mg/5 mL 30 ml PO DAILY PRN Constipation 05/05/22 05/05/22 Unknown History oral suspension (Milk of Magnchava) oxycodone-acetaminophen 5 mg-325 1 tab PO Q6H PRN pain 05/05/22 05/05/22 Unknown History mg tablet potassium chloride 10 mEq 10 meq PO DAILY 05/05/22 05/05/22 Unknown History capsule,extended release selegiline HCl 5 mg tablet 1 tab PO BID 05/05/22 05/05/22 Unknown History sodium phosphates 19 gram-7 118 ml HI DAILY PRN Constipation 05/05/22 05/05/22 Unknown History gram/118 mL enema (Fleet Enema) venlafaxine 75 mg capsule,extended 1 cap PO DAILY 05/05/22 05/05/22 Unknown History release 24 hr Exam Exam Date and Time: May 05, 2022 151 Height,Weight and Vital Signs: Height 5 ft 8 in Weight 71 kg Last Vital Signs Temp 97.5 F 05/05/22 14:39 Pulse 89 05/05/22 14:39 Resp 16 05/05/22 14:39 BP 141/61 H 05/05/22 14:39 Pulse Ox 94 05/05/22 14:39 O2 Del Method 05/05/22 14:39 Oxygen Flow Rate 2 05/04/22 23:03 Pertinent Lab Results Pertinent Lab Results: Laboratory Tests 05/05/22 05/05/22 05/05/22 01:13 01:13 01:13 WBC 9.3 RBC 3.79 L Hgb 10.8 L Hct 33.5 L MCV 88.4 MCH 28.5 MCHC 32.2 RDW 13.8 Plt Count 270 MPV 9.0 L Immature Gran % (Auto) 0.4 Neut % (Auto) 75.5 H Lymph % (Auto) 11.7 L [place] % (Auto) 7.0 Eos % (Auto) 5.2 H Baso % (Auto) 0.2 Lymph # (Auto) 1.1 L [place] # (Auto) 0.7 Eos # (Auto) 0.5 H Baso # (Auto) 0.0 Abs Immat Gran (auto) 0.04 H Absolute Neuts (auto) 7.0 Absolute Nucleated RBC 0.000 Nucleated RBC % (auto) 0.0 PT 12.0 INR 1.1 Sodium 140 Potassium 3.9 Chloride 106 Carbon Dioxide 26 Anion Gap 12 BUN 19 H Creatinine 0.89 Estim Creat Clear Calc 61.9 Estimated GFR > 60 Random Glucose 122 H Lactic Acid Calcium 9.3 D Magnesium 2.1 Total Bilirubin 0.7 Direct Bilirubin 0.4 AST 16 ALT < 6 Alkaline Phosphatase 91 Total Creatine Kinase 71 D Troponin I High Sens Total Protein 5.8 L Albumin 3.6 Lipase 14 Urine Color Urine Appearance Urine pH Ur Specific [place] Urine Protein Urine Glucose (UA) Urine Ketones Urine Blood Urine Nitrite Ur Leukocyte Esterase Urine RBC Urine WBC Ur Squamous Epith Cells Urine Bacteria Hyaline Casts Urine Mucus Urine Sperm COVID-19 ([facility]) COVID-19 Clin Com Blood Type Antibody Screen 05/05/22 05/05/22 05/05/22 01:13 01:13 01:13 WBC RBC Hgb Hct MCV MCH MCHC RDW Plt Count MPV Immature Gran % (Auto) Neut % (Auto) Lymph % (Auto) [place] % (Auto) Eos % (Auto) Baso % (Auto) Lymph # (Auto) [place] # (Auto) Eos # (Auto) Baso # (Auto) Abs Immat Gran (auto) Absolute Neuts (auto) Absolute Nucleated RBC Nucleated RBC % (auto) PT INR Sodium Potassium Chloride Carbon Dioxide Anion Gap BUN Creatinine Estim Creat Clear Calc Estimated GFR Random Glucose Lactic Acid 0.9 Calcium Magnesium Total Bilirubin Direct Bilirubin AST ALT Alkaline Phosphatase Total Creatine Kinase Troponin I High Sens 7.9 Total Protein Albumin Lipase Urine Color Urine Appearance Urine pH Ur Specific [place] Urine Protein Urine Glucose (UA) Urine Ketones Urine Blood Urine Nitrite Ur Leukocyte Esterase Urine RBC Urine WBC Ur Squamous Epith Cells Urine Bacteria Hyaline Casts Urine Mucus Urine Sperm COVID-19 ([facility]SE[facility]) Negative COVID-19 Clin Com See Note Blood Type Antibody Screen 05/05/22 05/05/22 05/05/22 02:17 05:57 05:57 WBC 9.3 RBC 3.46 L Hgb 10.0 L Hct 31.0 L MCV 89.6 MCH 28.9 MCHC 32.3 RDW 13.8 Plt Count 265 MPV 9.4 Immature Gran % (Auto) 0.3 Neut % (Auto) 80.1 H Lymph % (Auto) 9.9 L [place] % (Auto) 7.2 Eos % (Auto) 2.3 Baso % (Auto) 0.2 Lymph # (Auto) 0.9 L [place] # (Auto) 0.7 Eos # (Auto) 0.2 Baso # (Auto) 0.0 Abs Immat Gran (auto) 0.03 Absolute Neuts (auto) 7.4 Absolute Nucleated RBC 0.000 Nucleated RBC % (auto) 0.0 PT INR Sodium 141 Potassium 4.1 Chloride 107 Carbon Dioxide 27 Anion Gap 11 L BUN 19 H Creatinine 0.82 Estim Creat Clear Calc 67.1 Estimated GFR > 60 Random Glucose 128 H Lactic Acid Calcium 8.9 Magnesium Total Bilirubin Direct Bilirubin AST ALT Alkaline Phosphatase Total Creatine Kinase Troponin I High Sens Total Protein Albumin Lipase Urine Color DK YELLOW Urine Appearance HAZY Urine pH 6.0 Ur Specific [place] >= 1.030 H Urine Protein 2+ H Urine Glucose (UA) NEG Urine Ketones 15 Urine Blood 1+ H Urine Nitrite NEG Ur Leukocyte Esterase NEG Urine RBC 15-29 H Urine WBC 1-4 Ur Squamous Epith Cells 1+ Urine Bacteria 2+ Hyaline Casts 0-2 Urine Mucus 2+ Urine Sperm NOTED COVID-19 (NASEEM) COVID-19 [employer] Com Blood Type Antibody Screen 05/05/22 13:07 WBC RBC Hgb Hct MCV MCH MCHC RDW Plt Count MPV Immature Gran % (Auto) Neut % (Auto) Lymph % (Auto) [place] % (Auto) Eos % (Auto) Baso % (Auto) Lymph # (Auto) [place] # (Auto) Eos # (Auto) Baso # (Auto) Abs Immat Gran (auto) Absolute Neuts (auto) Absolute Nucleated RBC Nucleated RBC % (auto) PT INR Sodium Potassium Chloride Carbon Dioxide Anion Gap BUN Creatinine Estim Creat Clear Calc Estimated GFR Random Glucose Lactic Acid Calcium Magnesium Total Bilirubin Direct Bilirubin AST ALT Alkaline Phosphatase Total Creatine Kinase Troponin I High Sens Total Protein Albumin Lipase Urine Color Urine Appearance Urine pH Ur Specific [place] Urine Protein Urine Glucose (UA) Urine Ketones Urine Blood Urine Nitrite Ur Leukocyte Esterase Urine RBC Urine WBC Ur Squamous Epith Cells Urine Bacteria Hyaline Casts Urine Mucus Urine Sperm COVID-19 (NASEEM) COVID-19 [employer] Com Blood Type O Positive Antibody Screen NEGATIVE Airway Mallampati Class: II TM Dist: >3cm Neck ROM: Full Heart: RRR Lungs: CTA Assessment and Plan Assessment Anesthesia Assessment: Anesthesia Plan Discussed and Chart Reviewed Final Anesthetic Review Family History of Problems with Anesthesia: No History of Problems with Anesthesia: No NPO: Yes ASA Class: III and Emergency Final Preanesthetic Review: No Changes in Pt Med Stat, Meds/Allgs Chart Reviewed, Consent Obtained/Reviewed, Anes Risks/Benef Reviewed and DNR Form (If Appl.) Patient Risk: Intermediate Procedure Risk: Intermediate Anesthetic Plan Anesthetic Plan: GA Disposition: Standard PACU
--- NOTE | 2022-05-05 15:42 | MHC.SHP ---
Pre-Procedural Eval Section A Date of Service: 05/05/22 The patient is an INPATIENT: No Changes since office visit: Yes Patient answered all questions; No Cold of Flu in the past 2 weeks, No New Medical Problems and No Changes in Medication The History & Physical has been completed within 30 days and I have reviewed it.: Yes Section B Chief Complaint: Left hip fracture Allergies: Allergies Allergy/AdvReac Type Severity Reaction Status Date / Time meperidine [Demerol] Allergy Unknown Agitated Verified 05/04/22 23:02 penicillamine [Cuprimine] Allergy Unknown Agitated Verified 05/04/22 23:02 Plan I have reviewed the history and physical and performed a pertinent physical examination on my patient. No changes have occurred unless specified.
--- NOTE | 2022-05-05 16:36 | P.BOP_ITS ---
Brief Operative Note Date of Service: 05/05/22 Pre-op diagnosis: LEFT HIP FX Post-op diagnosis: same Procedure: LEFT HIP IMN Implants: Fatimah [id number] 125 deg with 105 mm hip screw and 40 mm distal interlock Surgeon: Chintan Pearce MD Anesthesia: GLMA and local Was an Recovery Specialist used for this Procedure?: No Estimated blood loss (mL): 75 Urine output (mL): 300 Pathology: none sent Condition: stable Disposition: PACU
[2022-05-06] VITALS (8 sets, daily range): BP systolic 108–141; BP diastolic 56–65; PULSE 74–82; RESP 12–18; TEMP 36.6–37.4; O2SAT 94–98
[2022-05-06] MEDS: HYDROmorphone HCl 0.5 MG/0.5 ML SYRINGE IVPUSH ×4 (05:42→22:27)
--- NOTE | 2022-05-06 09:52 | MHC.CM.PN ---
PER REVIEW OF CHART, PATIENT IS IN FROM [facility]. REFERRAL PLACED FOR FACILITY TO FOLLOW UPON ASSESSMENT ATTEMPT, PATIENT IS BEING BATHED. CASE MANAGEMENT TO RETURN AT A MORE APPROPRIATE TIME. IF PATIENT IS UNABLE TO PARTICIPATE IN ASSESSMENT AND IMM DELIVERY COMMUNICATIONS, CASE MANAGEMENT TO CONTACT HCP (IN PATIENT'S CHART FROM FACILITY)
--- NOTE | 2022-05-06 10:14 | P.PNIM_ITS ---
Subjective Subjective Date of Service: 05/06/22 Interval History: follow up on hp fracture s/p repair yesterday interval history: pain is controlled, shows sings of aspiration with water Review of Systems no pain, no fever Physical Exam Vital Signs: Vital Signs: Last Vital Signs Temp 98.7 F 05/06/22 07:55 Pulse 80 05/06/22 07:55 Resp 12 05/06/22 07:55 BP 115/57 L 05/06/22 07:55 Pulse Ox 94 05/06/22 07:55 O2 Del Method 05/06/22 07:55 O2 Flow Rate 2 05/06/22 00:00 Oxygen Flow Rate 2 05/04/22 23:03 BMI result Body Mass Index 23.8 Const: Other: General: AO X , no acute distress Resp: CTA bilateral CVS: S1,S2,RRR GI: +BS, NT, no distention Skin: No rash, surgery site dry/in Neuro: motor grossly intact Psych: appropriate affect Objective Data Active Medications Acetaminophen (Acetaminophen 325 Mg Tablet) 650 mg PO Q6H PRN PRN Reason: Pain, Mild (Pain Scale 1-3) Fentanyl (Fentanyl Citrate/Pf 100 Mcg/2 Ml Vial) 25 mcg IVPUSH Q5M PRN; Protocol PRN Reason: Pain, Moderate (Pain Scale 4-6 Hydromorphone HCl (Hydromorphone Hcl 0.5 Mg/0.5 Ml Syringe) 0.5 mg IVPUSH Q4H PRN; Protocol PRN Reason: Pain, Severe (Pain Scale 7-10) Last Admin: 05/06/22 05:42 Dose: 0.5 mg Documented By: THEA Hydromorphone HCl (Hydromorphone Hcl 0.5 Mg/0.5 Ml Syringe) 0.5 mg IVPUSH Q5M PRN; Protocol PRN Reason: Pain, Severe (Pain Scale 7-10) Ondansetron HCl (Ondansetron Hcl 4 Mg/2 Ml Vial) 4 mg IVPUSH Q8H PRN PRN Reason: Nausea and Vomiting Last Admin: 05/05/22 02:46 Dose: 4 mg Documented By: RETA Oxycodone HCl (Oxycodone Hcl Immed Release 5 Mg Tablet) 5 mg PO Q4H PRN PRN Reason: Pain, Moderate (Pain Scale 4-6 Sodium Chloride (0.9 % Sodium Chloride Flush 3 Ml Syringe) 3 ml IVFLUSH QSHIFT VELVET Last Admin: 05/06/22 07:25 Dose: Not Given Documented By: [place] Non-Admin Reason: assessed Labs CBC & Chem 7: 05/05/22 05:57 05/05/22 05:57 Labs: Laboratory Results - last 24 hr 05/05/22 13:07 Blood Type O Positive Antibody Screen NEGATIVE Microbiology Microbiology Results: Microbiology 05/05/22 01:24 Blood Culture - Preliminary Blood - Venous No growth after 24 hours. 05/05/22 01:13 Blood Culture - Preliminary Blood - Venous No growth after 24 hours. Assessment and Plan (1) Closed intertrochanteric fracture: Status: Acute (2) Mycobacterium avium infection: Status: Acute Plan 81-year-old male past medical history of Parkinson's dementia, recently diagnosed my Bactrim AVM, HTN,[facility] # Left hip fracture -s/p repair 05/05 # MAC - Daughter reports that they no longer want pt treated for it as he has sign ificant weakness and worsening parkisonian symptoms from these meds - she is adamanet that this desicion was made with discussion with pt and the whole family - they want PICC also removed--will do so before discharge - Antibiotics stopped # HTN--continue med - # Parkinson's disease - Continue home meds DVT prophylaxis:? Lovenox Need for inpatent: post op care, and Quality Stroke Does the patient have a stroke diagnosis?: No VTE Prior VTE?: No VTE Risk Level:: Medical - low VTE Device Contraindication: N/A - Device Ordered VTE Drug Contraindication: Treatment Not Indicated
[2022-05-06 10:49] LABS: Hematocrit 27.7 % (42.0-52.0); Hemoglobin 8.8 g/dl (14.0-18.0); Mean Corpuscular HGB Conc 31.8 g/dl (31.0-36.0); Mean Corpuscular Hemoglobin 28.9 pg (27.0-33.0); Mean Corpuscular Volume 91.1 fL (80.0-98.0); Mean Platelet Volume 9.5 fL (9.4-12.4); Platelet Count 233 X10*3/uL (160-400); Red Blood Count 3.04 X10*6/uL (4.60-5.80); Red Cell Distribution Width 14.2 % (11.0-16.0); White Blood Count 11.7 X10*3/uL (4.8-10.8)
--- NOTE | 2022-05-06 12:33 | HO.POSTANES ---
Post Anesthesia Evaluation Post Anesthesia Evaluation Vital Signs: Vital Signs Temp Pulse Resp BP Pulse Ox O2 Del Method 05/06/22 12:00 99.4 F 77 16 112/59 L 94 Room Air 05/06/22 07:55 98.7 F 80 12 115/57 L 94 Room Air 05/06/22 03:37 97.9 F 82 18 131/61 96 Room Air Anesthesia: General LMA Mental Status: Awake Pain Control: Satisfactory Nausea/Vomiting: None Hydration: Adequate Anesthesia-Related Issues: No Anes. Related Issues
[2022-05-06] MEDS: Acetaminophen 325 MG TABLET 650 MG PO (13:19)
[2022-05-06] MEDS: oxyCODONE HCl Immed Release 5 MG TABLET PO (13:19)
--- NOTE | 2022-05-06 14:33 | PC.NURSE ---
Addendum entered by Hilton Eller RN 05/06/22 15:03: per , family tested positive on Friday 05/04 and pt was with family all day. informed. Original Note: Pt's at bedside assisting with care. PA assessed pt. pt bathed this shift. pt repo'ed in bed Q2 and pain meds given as ordered for hip, back pain and headache. safety and fall precautions in place. call ellis within reach. pt given sanjuana to suction sputum, + teach back. pt takes liquids honey thickened and is a 1:1 feed.
--- NOTE | 2022-05-06 15:01 | MHC.CM.PN ---
PATIENT HCP FOUND IN CHART (IN ROOM) STATES THAT PATIENT HAS BEEN COVID VACCINATED X 3 PLAN IS TO RETURN TO FACILITY IMM DISCUSSED AND 05/06 COPY IN CHART.
--- NOTE | 2022-05-06 15:05 | P.PNOP_ITS ---
Subjective Subjective Date of Service: 05/06/22 Interval history: POD 1 s/p left hip IMN no overnight events resting in bed, has some pain but tolerable. deneis cp, sob, palpitations Physical Exam Vital Signs: Vital Signs: Last Vital Signs Temp 99.4 F 05/06/22 12:00 Pulse 77 05/06/22 12:00 Resp 16 05/06/22 12:00 BP 112/59 L 05/06/22 12:00 Pulse Ox 94 05/06/22 12:00 O2 Del Method 05/06/22 12:00 O2 Flow Rate 2 05/06/22 00:00 Oxygen Flow Rate 2 05/04/22 23:03 BMI result Body Mass Index 23.8 Const: General: cooperative, healthy appearing and no acute distress Resp: Effort & Inspection: normal respiratory effort and able to speak in complete sentences Cardio: Rate: regular rate Peripheral pulses: Peripheral pulses 2+ throughout GI: Palpation (GI): Soft to palpation Skin: General skin exam: no rashes or lesions noted Extrem: Other: incision clean dry and intact. No erythema or effusion. Calf supple nontender. Neurovascularly intact. Procedures Date of Service Date of Service: 05/06/22 Progress Note: A&P Assessment and plan (1) Closed intertrochanteric fracture: Status: Acute Assessment and Plan: * Continue pain mgmnt * Begin lovenox for dvt ppx * begin PT/OT for LT hip IMN * Dispo planning-Pending PT eval, pain mgmnt Time Spent With Patient Time: Total time spent is greater than 50% in coordination of care (as documented) at patient's floor/unit and/or counseling patient: Quality Stroke Does the patient have a stroke diagnosis?: No VTE Prior VTE?: No VTE Risk Level:: Medical - low VTE Device Contraindication: N/A - Device Ordered VTE Drug Contraindication: Treatment Not Indicated
[2022-05-06] MEDS: 0.9 % Sodium Chloride Flush 3 ML SYRINGE IVFLUSH (15:56)
[2022-05-06 18:10] LABS: COVID-19 Test Negative (Negative); IDNOW Serial# 16C4AD1C
--- NOTE | 2022-05-06 22:41 | PM.EVENT ---
Event Note Date of Service: 05/06/22 Event Note: Hematuria: Per RN patient pulled out Busch with balloon inflated. Followed by patient had small bleeding for his penis. Patient had Busch placed in during surgery. Spoke to Dr. Serna from Urology, suggested observation, and if needed Busch can be reinserted. The bleeding slowly improving. Shown in the pictures below. Family updated; mentioned pt some times gets agitated and receives ativan if agitated.
--- NOTE | 2022-05-07 00:39 | PC.NURSE ---
Previous RN via [employer] at 0000 asked if I would note for her that patient pulled campos catheter out with balloon intact during 3-11 shift. She noted bleeding in report to this RN. bladder scan at midnight revealed less than 200ML in bladder without void. Patient shows no signs of discomfort. ABD dressing under penis placed by previous shift. Very small stain of blood to dressing and does not show signs of active bleeding.
[2022-05-07 03:30] VITALS: BP 133/68; PULSE 88; RESP 18; TEMP 36.3; O2SAT 96
[2022-05-07] MEDS: oxyCODONE HCl Immed Release 5 MG TABLET PO ×2 (05:52→17:00)
--- NOTE | 2022-05-07 06:09 | PC.NURSE ---
patient had minimal bleeding from penis during 11pm to present. small amount of urinary incontinence approx 0300. bladder scan at midnight and 0400 both revealed less than 200mL.
[2022-05-07 07:15] VITALS: BP 130/71; PULSE 82; RESP 18; TEMP 36.9; O2SAT 97
--- NOTE | 2022-05-07 08:16 | PM.PNORT ---
Subjective Subjective Date of Service: 05/07/22 Interval history: POD 2 status post left hip IM nail with Dr. Pearce. Patient is resting comfortably in bed. No overnight events. Pain appears to be well managed. No additional complaints. Physical Exam Vital Signs: Vital Signs: Last Vital Signs Temp 98.5 F 05/07/22 07:15 Pulse 82 05/07/22 07:15 Resp 18 05/07/22 07:15 BP 130/71 05/07/22 07:15 Pulse Ox 97 05/07/22 07:15 O2 Del Method 05/07/22 07:15 O2 Flow Rate 2 05/06/22 00:00 Oxygen Flow Rate 2 05/04/22 23:03 BMI result Body Mass Index 23.8 Const: General: cooperative, healthy appearing and no acute distress Resp: Effort & Inspection: normal respiratory effort and able to speak in complete sentences Cardio: Rate: regular rate Peripheral pulses: Peripheral pulses 2+ throughout GI: Palpation (GI): Soft to palpation Skin: Lesions: no lesions Rashes: no rashes Extrem: Other: Left hip dressings are clean dry and intact. Patient is able to move all extremities. NVI. Procedures Date of Service Date of Service: 05/07/22 Progress Note: A&P Assessment and plan (1) Closed intertrochanteric fracture: Status: Acute Assessment and Plan: Continue pain mgmnt Continue Lovenox for dvt ppx Continue PT for left hip IM nail Dispo planning-PT, pain mgmnt, patient is cleared from orthopedic perspective to return back to rehab once medically clear. (2) Mycobacterium avium infection: Status: Acute Time Spent With Patient Time: Total time spent is greater than 50% in coordination of care (as documented) at patient's floor/unit and/or counseling patient: Quality Stroke Does the patient have a stroke diagnosis?: No VTE Prior VTE?: No VTE Risk Level:: Medical - low VTE Device Contraindication: N/A - Device Ordered VTE Drug Contraindication: Treatment Not Indicated
[2022-05-07] MEDS: Acetaminophen 325 MG TABLET 650 MG PO (08:38)
[2022-05-07 08:40] LABS: Hematocrit 25.3 % (42.0-52.0); Hemoglobin 8.3 g/dl (14.0-18.0); Mean Corpuscular HGB Conc 32.8 g/dl (31.0-36.0); Mean Corpuscular Hemoglobin 29.5 pg (27.0-33.0); Mean Platelet Volume 9.9 fL (9.4-12.4); Platelet Count 230 X10*3/uL (160-400); Red Blood Count 2.81 X10*6/uL (4.60-5.80); Red Cell Distribution Width 14.5 % (11.0-16.0); White Blood Count 11.3 X10*3/uL (4.8-10.8)
[2022-05-07 09:21] VITALS: BP 130/71; PULSE 82; O2SAT 97
--- NOTE | 2022-05-07 10:08 | P.DS_ITS ---
DS: Providers Provider Date of Service: 05/07/22 Date of admission: 05/05/22 02:34 Primary care physician: Deshawn Caruso III, MD Consults: 05/05/22 01:23 Consult to Orthopedics Routine Consulting Provider: Ivy Patel Reason for consultation: L intertrochanteric fracture Has provider been notified: Yes 05/05/22 02:33 Consult to Orthopedics Routine Consulting Provider: Chintan Pearce Reason for consultation: hip fracture Has provider been notified: No 05/07/22 10:03 Consult to Neurology Routine Consulting Provider: [facility] Reason for consultation: parkinson Has provider been notified: No DS: Diagnosis Discharge Diagnosis (1) Closed intertrochanteric fracture: Status: Acute (2) Mycobacterium avium infection: Status: Acute DS: Summary Hospital Course Hospital Course: Chief Complaint: fall This is an 81-year-old male past medical history of dementia, Parkinson's disease, HTN, recent diagnosis of mycobacterium avium infection currently on antibiotics, epilepsy who presents to the hospital after a fall snf.? Patient was in significant pain, he is currently sleeping after receiving Dilaudid for pain for id therefore? History is obtained from ED physician as well as granddaughter at bedside.I also spoke to daughter over the phone, who reports that he was discharged this same day from [facility] for treatment of MAC and was on heavy duty medications that made him very weak and worsened his parisons symptoms. ? It appears the patient had an unwitnessed fall at the snf, unclear how it happened but he was trying to go to the bathroom. Arrival to the ED patient hemodynamically stable with no significant abnormal vitals Labs are significant for WBC count of 9.3, hemoglobin of 10.8, hematocrit 33.5, otherwise unremarkable.? Imaging showed left hip comminuted intertrochanteric fracture with varus angulation Patient will be admitted for further management Hospital course:Patient underwent operative repair on 05/05 and is doing fine post op hemoglobin is 8 and unchanged. PT has been working with him, Oxycodone for pain and DVT prophyalxis with Lovenox for 6 weeks. Of note, he no longer want to be treated for AYE, so Amikacin is stopped. Time Spent with Patient Time attestation: Total time spent providing and/or coordinating discharge services: Discharge coordination time: Greater than 30 minutes Quality: Safe Use of Opioids Does Pt have an Active Cancer Diagnosis on the Problem List?: No Quality: Stroke Does the patient have a stroke diagnosis?: No Physical Exam Vital Signs: Vital Signs: Last Vital Signs Temp 98.5 F 05/07/22 07:15 Pulse 82 05/07/22 09:21 Resp 18 05/07/22 07:15 BP 130/71 05/07/22 09:21 Pulse Ox 97 05/07/22 09:21 O2 Del Method 05/07/22 07:15 O2 Flow Rate 2 05/06/22 00:00 Oxygen Flow Rate 2 05/04/22 23:03 BMI result Body Mass Index 23.8 DS: Data Data Completed and Pending Labs on day of discharge: Laboratory Results - last 24 hr 05/06/22 05/06/22 05/07/22 10:25 15:28 08:11 WBC 11.7 H RBC 3.04 L Hgb 8.8 L Cancelled Hct 27.7 L Cancelled MCV 91.1 MCH 28.9 MCHC 31.8 RDW 14.2 Plt Count 233 MPV 9.5 Absolute Nucleated RBC 0.000 Nucleated RBC % (auto) 0.0 COVID-19 (NASEEM) Negative COVID-19 Clin Com See Note 05/07/22 08:11 WBC 11.3 H RBC 2.81 L Hgb 8.3 L Hct 25.3 L MCV 90.0 MCH 29.5 MCHC 32.8 RDW 14.5 Plt Count 230 MPV 9.9 Absolute Nucleated RBC 0.000 Nucleated RBC % (auto) 0.0 COVID-19 (NASEEM) COVID-19 Clin Com Preliminary micro results at discharge 05/05/22 01:24 Blood Culture - Preliminary Blood - Venous No growth after 48 hours. 05/05/22 01:13 Blood Culture - Preliminary Blood - Venous No growth after 48 hours. Discharge Plan Discharge Anticipated Discharge Date/Time: 05/07/22 10:04 Patient Disposition: Xfer SNF Discharge Diagnosis: Hip fracture Referrals: Deshawn Caruso III, MD [Primary Care Provider] - 1 Week Discharge Medications: New oxycodone 5 mg Tablet 5 mg PO Q4H PRN (Reason: Pain, Moderate (Pain Scale 4-6) Qty: 20 0RF Rx Instructions: Partial Fill upon patient request. enoxaparin 40 mg/0.4 mL Syringe 40 mg subcut Q24H 42 Days Qty: 16.8 0RF Continued carisoprodol 350 mg tablet 1 tab PO TID PRN (Reason: Spasms) venlafaxine 75 mg capsule,extended release 24hr 1 cap PO DAILY levetiracetam 500 mg tablet 1 tab PO BID carbidopa-levodopa 50-200 mg tablet extended release 1 tab PO BEDTIME amlodipine 5 mg tablet 1 tab PO DAILY levothyroxine 75 mcg tablet 1 tab PO DAILY@0600 entacapone 200 mg tablet 1 tab PO DAILY@0700,1300,1600 lorazepam 0.5 mg tablet 1 tab PO BEDTIME PRN (Reason: Anxiety) selegiline HCl 5 mg tablet 1 tab PO BID hydrochlorothiazide 25 mg tablet 1 tab PO DAILY carbidopa-levodopa 25-100 mg tablet 1 tab PO DAILY@0700,1000,1300 oxycodone-acetaminophen 5-325 mg tablet 1 tab PO Q6H PRN (Reason: pain) entacapone 200 mg tablet 1 tab PO DAILY@2000 Fleet Enema 19-7 gram/118 mL Enema 118 ml ND DAILY PRN (Reason: Constipation) aspirin 81 mg Tablet,Chewable 81 mg PO DAILY albuterol sulfate 90 mcg/actuation Hfa Aerosol Inhaler 1 puff INHALATION Q4H PRN (Reason: Shortness Of Breath) carbidopa-levodopa 25-100 mg tablet 1 tab PO DAILY@1600,1900 losartan 100 mg Tablet 100 mg PO DAILY potassium chloride 10 mEq Capsule, Extended Release 10 meq PO DAILY acetaminophen 325 mg Tablet 650 mg PO Q6H PRN (Reason: Fever) magnesium hydroxide [Milk of Magnesia] 400 mg/5 mL Suspension 30 ml PO DAILY PRN (Reason: Constipation) bisacodyl 10 mg Suppository 10 mg ND DAILY PRN (Reason: Constipation) Discontinued amikacin 500 mg/2 mL Solution 1,000 mg IV MOWEFR@1300 Discharge Orders: Discharge Order (Routine); Ordered 05/07/22 Ordered By: Miller Ortega Diet: advance to usual diet Activity on Discharge: As tolerated Stand Alone Forms: Patient Portal Discharge page Care Plan Goals: full recocvery from hip fracture Health Concerns: hip fracture Plan of Treatment: PT, OT, rehab Gait training Lovenox for dvt ppx x6 weeks Keep dressing clean, dry and intact-no showering or tub baths Follow up with Orthopedics in 2 weeks Please arrange for PICC line to be removed as no longer needs for IV Antibiotics Assessment: as above
[2022-05-07] MEDS: 0.9 % Sodium Chloride Flush 3 ML SYRINGE IVFLUSH ×2 (11:47→17:01)
[2022-05-07 12:00] VITALS: BP 127/58; PULSE 75; RESP 16; TEMP 36.6; O2SAT 96
--- NOTE | 2022-05-07 13:06 | MHC.SL.SWA ---
Speech Pathologist Impression:Oropharyngeal dysphagia Risk of Aspiration Due to: Neurological Condition Reduced Cognition Dysphasia Diet Status: Downgrade Liquid Consistency and Strategies for Safe Swallow: Liquid Intake Recommendation: Honey Thick Liquid Intake Strategies: Small Sips No Straws Solid Food Consistency: Dietary Recommendations: Pureed (NDD1) Additional Modifications to Solid Foods: Recommend start patient on pureed diet (NDD1) w/ honey thick liquids by teaspoon or controlled cup sip. Medications whole or crushed in puree, depending on patient's tolerance- It was noted by staff at [facility] that patient took pills whole in applesauce, as he did not like them crushed. Patient to have 1:1 assistance for all PO intake. Per staff at [facility], patient exhibited difficulty remaining upright for meals while in bed- Recommended patient to be out of bed for all meals, sitting up in chair at 90 degree angle. Recommend close monitoring for overt s/s of aspiration, ensure strict aspiration precautions. Patient must be awake and alert for presentation of PO, otherwise hold tray. HABILITATIVE INTERVENTIONIST will continue to follow to monitor tolerance, re-evaluate for potential upgrade. Diet order updated by HABILITATIVE INTERVENTIONIST in [facility]. Sent Elon Message to MD, RN, RD notifying of recommendations. Oral Medication Intake: Crushed with Puree Please contact the pharmacy regarding appropriate crushable or liquid drug formulations that are available whenever modified delivery is recommended. Compensatory Strategies and Precautions to be Taken for Safe Swallow: Sitting Upright (90 deg) No Straw Liquids from Cup Liquids from Spoon Small Bites and Sips Rate of Ingestion Change Supervision While Eating and Drinking for Safe Swallow: Total Assistance (1:1) Swallowing Recommended Treatments: Compens. Strategy Educat. Recommendation for Speech: Inpatient Speech Therapy Comment: HABILITATIVE INTERVENTIONIST will continue to follow. Box Repairer Clinican/Clinical Fellow: No Supervisory Statement: I have reviewed and agree with the student/clinical fellow's documentation: N/A Speech Language Pathologist: Nicolette Cole M.A., [facility]-HABILITATIVE INTERVENTIONIST
--- NOTE | 2022-05-07 14:13 | PM.NEUROCN ---
History of Present Illness Data of Consult Service Date: 05/07/22 Primary Care Provider: Deshawn Caruso III, MD [facility] Reason for consult: Parkinson's disea 81 years old man known to me for many years for Parkinson's disease. He also suffered from seizure disorder and chronic back pain. More recently he has moved to a fpc because of His family's inability to take care of him. He was in hospital after he fell down and fractured. It was not clear if he was going back to home. Review of Systems Review of Systems: No dizziness nausea vomiting hallucinations or cold or flu-like illness at this time [facility] Past Medical History Medical History (Updated 05/07/22 @ 14:15 by Golden Moffett MD) Dementia Dysphagia, unspecified Epilepsy Essential (primary) hypertension Low back pain, unspecified Mycobacterium avium complex Parkinson's disease Family History Family History (Updated 05/05/22 @ 05:27 by Hermelinda Kumari MD) Other No family history of coronary artery disease Surgical History Surgical History No pertinent past surgical history Social History Social History (Updated 05/05/22 @ 05:27 by Hermelinda Kumari MD) Household Members: Unknown / Unable to assess Housing: Custodial Do you presently have visiting nurse or other home services: No Unable to assess alcohol history related to: Unable to respond Alcohol intake: unknown Patient Tobacco Use Status: Never used Tobacco Current occupational status: retired Meds Allergies Allergy/AdvReac Type Severity Reaction Status Date / Time meperidine [Demerol] Allergy Unknown Agitated Verified 05/04/22 23:02 penicillamine [Cuprimine] Allergy Unknown Agitated Verified 05/04/22 23:02 Active Medications: Current Medications Acetaminophen (Acetaminophen 325 Mg Tablet) 650 mg PO Q6H PRN PRN Reason: Pain, Mild (Pain Scale 1-3) Last Admin: 05/07/22 08:38 Dose: 650 mg Enoxaparin Sodium (Enoxaparin Sodium 40 Mg/0.4 Ml Syringe) 40 mg SUBCUT Q24H VELVET Last Admin: 05/06/22 16:00 Dose: Not Given Fentanyl (Fentanyl Citrate/Pf 100 Mcg/2 Ml Vial) 25 mcg IVPUSH Q5M PRN; Protocol PRN Reason: Pain, Moderate (Pain Scale 4-6 Hydromorphone HCl (Hydromorphone Hcl 0.5 Mg/0.5 Ml Syringe) 0.5 mg IVPUSH Q4H PRN; Protocol PRN Reason: Pain, Severe (Pain Scale 7-10) Last Admin: 05/06/22 22:27 Dose: 0.5 mg Hydromorphone HCl (Hydromorphone Hcl 0.5 Mg/0.5 Ml Syringe) 0.5 mg IVPUSH Q5M PRN; Protocol PRN Reason: Pain, Severe (Pain Scale 7-10) Ondansetron HCl (Ondansetron Hcl 4 Mg/2 Ml Vial) 4 mg IVPUSH Q8H PRN PRN Reason: Nausea and Vomiting Last Admin: 05/05/22 02:46 Dose: 4 mg Oxycodone HCl (Oxycodone Hcl Immed Release 5 Mg Tablet) 5 mg PO Q4H PRN PRN Reason: Pain, Moderate (Pain Scale 4-6 Last Admin: 05/07/22 05:52 Dose: 5 mg Sodium Chloride (0.9 % Sodium Chloride Flush 3 Ml Syringe) [facility] Last Admin: 05/07/22 11:47 Dose: 3 ml Home Medications Medication Instructions Recorded Confirmed Last Taken Type acetaminophen 325 mg tablet 650 mg PO Q6H PRN Fever 05/05/22 05/05/22 Unknown History albuterol sulfate 90 mcg/actuation 1 puff inhalation Q4H PRN 05/05/22 05/05/22 Unknown History aerosol inhaler Shortness Of Breath amlodipine 5 mg tablet 1 tab PO DAILY 05/05/22 05/05/22 Unknown History aspirin 81 mg chewable tablet 81 mg PO DAILY 05/05/22 05/05/22 Unknown History bisacodyl 10 mg rectal suppository 10 mg IA DAILY PRN Constipation 05/05/22 05/05/22 Unknown History carbidopa 25 mg-levodopa 100 mg 1 tab PO DAILY@0700,1000,1300 05/05/22 05/05/22 Unknown History tablet carbidopa 25 mg-levodopa 100 mg 1 tab PO DAILY@1600,1900 05/05/22 05/05/22 Unknown History tablet carbidopa ER 50 mg-levodopa 200 mg 1 tab PO BEDTIME 05/05/22 05/05/22 Unknown History tablet,extended release carisoprodol 350 mg tablet 1 tab PO TID PRN Spasms 05/05/22 05/05/22 Unknown History entacapone 200 mg tablet 1 tab PO DAILY@0700,1300,1600 05/05/22 05/05/22 Unknown History entacapone 200 mg tablet 1 tab PO DAILY@2000 05/05/22 05/05/22 Unknown History hydrochlorothiazide 25 mg tablet 1 tab PO DAILY 05/05/22 05/05/22 Unknown History levetiracetam 500 mg tablet 1 tab PO BID 05/05/22 05/05/22 Unknown History levothyroxine 75 mcg tablet 1 tab PO DAILY@0600 05/05/22 05/05/22 Unknown History lorazepam 0.5 mg tablet 1 tab PO BEDTIME PRN Anxiety 05/05/22 05/05/22 Unknown History losartan 100 mg tablet 100 mg PO DAILY 05/05/22 05/05/22 Unknown History magnesium hydroxide 400 mg/5 mL 30 ml PO DAILY PRN Constipation 05/05/22 05/05/22 Unknown History oral suspension (Milk of Magnesia) oxycodone-acetaminophen 5 mg-325 1 tab PO Q6H PRN pain 05/05/22 05/05/22 Unknown History mg tablet potassium chloride 10 mEq 10 meq PO DAILY 05/05/22 05/05/22 Unknown History capsule,extended release selegiline HCl 5 mg tablet 1 tab PO BID 05/05/22 05/05/22 Unknown History sodium phosphates 19 gram-7 118 ml IA DAILY PRN Constipation 05/05/22 05/05/22 Unknown History gram/118 mL enema (Fleet Enema) venlafaxine 75 mg capsule,extended 1 cap PO DAILY 05/05/22 05/05/22 Unknown History release 24 hr Physical Exam Vital Signs: Vital Signs: Last Vital Signs Temp 97.9 F 05/07/22 12:00 Pulse 75 05/07/22 12:00 Resp 16 05/07/22 12:00 BP 127/58 L 05/07/22 12:00 Pulse Ox 96 05/07/22 12:00 O2 Del Method 05/07/22 12:00 O2 Flow Rate 2 05/06/22 00:00 Oxygen Flow Rate 2 05/04/22 23:03 BMI result Body Mass Index 23.8 Neuro: Other: he is alert and awake with normal spontaneity of speech fluency comprehension and affect. There is no significant tremor. No significant cogwheeling is noted. Exam is limited because of recent fall and injury. Deep tendon reflexes are trace to absent with flexor plantars. Results Labs CBC & Chem 7: 05/07/22 08:11 05/05/22 05:57 Labs: Short CBC 05/07/22 05/07/22 Range/Units 08:11 08:11 WBC 11.3 H (4.8-10.8) X10*3/uL Hgb Cancelled 8.3 L Hct Cancelled 25.3 L Plt Count 230 (160-400) X10*3/uL Microbiology Microbiology Results: Microbiology 05/05/22 01:24 Blood - Venous Blood Culture - Preliminary No growth after 48 hours. 05/05/22 01:13 Blood - Venous Blood Culture - Preliminary No growth after 48 hours. 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 His usual Parkinson's medicines were carbidopa levodopa extended release 50/201 at bedtime, anti cup on 200 mg 4 times a day, selegiline 5 mg twice a day, pramipexole 0.5 mg 3 times a day, and carbidopa levodopa 2500 4 times a day. For seizure disorder he was maintained on Keppra. I would continue same doses at this time. Procedures Date of Service Date of Service: 05/07/22
--- NOTE | 2022-05-07 14:54 | MHC.CM.PN ---
PT MEDIACLLY AND ORTHOPEDICALLY CLEARED FOR D/C BACK TO [facility], [facility] AWARE PT HAS LEFT HIP FX AND WILL NEED REHAB SERVICES, [facility] FOR TRANSPORT AT 3:30PM, PT'S AT BEDSIDE AND AGREEABLE TO PLAN
[2022-05-07 16:00] VITALS: BP 148/67; PULSE 85; RESP 17; TEMP 36.1; O2SAT 94
[2022-05-07] MEDS: Enoxaparin Sodium 40 MG/0.4 ML SYRINGE SUBCUT (17:00)
--- NOTE | 2022-05-15 12:16 | W.PM.OPN ---
Operative Note Operative Note Date of Service: 05/05/22 Narrative: Date of Service: 05/05/22 Pre-op diagnosis: LEFT HIP FX Post-op diagnosis: same Procedure: LEFT HIP IMN Implants: Fatimah [id number] 125 deg with 105 mm hip screw and 40 mm distal interlock Surgeon: Chintan Pearce MD Anesthesia: GLMA and local Was an Commercial Green Building Architect used for this Procedure?: No Estimated blood loss (mL): 75 Urine output (mL): 300 Pathology: none sent Condition: stable Disposition: PACU Procedure in detail: Patient was brought to the operating room and prepped and draped in standard sterile fashion. Time-out was called to identify proper site procedure proper surgeon and IV antibiotics per weight were administered. She was positioned on the fracture table and a traction and slight internal rotation were performed and biplanar fluoroscopy confirmed initial fracture reduction. I then made a stab incision proximal to the greater trochanter and, using a guidewire, I made an entry point just lateral to the tip of the greater trochanter and placed a guidewire into the femoral metadiaphysis. I then over-reamed with 15 mm Reamer placed my ball-tip guidewire down distally in the femur and selected a 180mm x 11mm 125 deg nail. I then placed the nail. I then turned my attention to the hip screw where I used a guidewire and a tip apex distance of less than 1.5 measured my hip screw as a 105.. I then pre drilled and placed a hip screw using biplanar fluoroscopy. Once I was satisfied with the position of the hip screw I turned my attention to the distal aspect of the nail. Using the attached guide, I placed 1 static distal interlocking screw in standard AO technique. I then removed all I then placed my set screw proximally and removed all extraneous instrumentation. Final biplanar radiographs were taken. I was satisfied with the position of the hardware and the fracture reduction. I think copiously irrigated closed with absorbable sutures beata and injected 30 mL of into the area of the incisions. Traction was let down patient was placed in sterile dressing awakened from anesthesia brought to recovery room stable condition there were no known complications.
== END 2022-05-07 17:18 | disposition skilled nursing facility (03) | DRG 481 ==
LOC: HO.ED 05-05 00:56 → HO.EDOVER 05-05 03:00 → HO.S3 05-05 12:48
PROVIDERS: Orthopaedic Surgery; Admitting Provider Internal Medicine; Emergency Provider Emergency Medicine; PCP Internal Medicine; Visit Provider Internal Medicine
PROC: 0QS734Z Reposition Left Upper Femur with Internal Fixation Device, Percutaneous Approach (ICD-10-PCS; principal; 2022-05-05 15:00)
DX: S72.142A Displaced intertrochanteric fracture of left femur, initial encounter for closed fracture (principal); A31.9 Mycobacterial infection, unspecified; T83.83XA Hemorrhage due to genitourinary prosthetic devices, implants and grafts, initial encounter; G40.909 Epilepsy, unspecified, not intractable, without status epilepticus; Z66 Do not resuscitate; G20 Parkinson's disease; I10 Essential (primary) hypertension; F02.80 Dementia in other diseases classified elsewhere, unspecified severity, without behavioral disturbance, psychotic disturbance, mood disturbance, and anxiety; E78.5 Hyperlipidemia, unspecified; W06.XXXA Fall from bed, initial encounter; Z20.822 Contact with and (suspected) exposure to COVID-19; Z88.8 Allergy status to other drugs, medicaments and biological substances; Z79.82 Long term (current) use of aspirin; Z79.890 Hormone replacement therapy; Z79.899 Other long term (current) drug therapy
CPT/HCPCS: 36415; 70450; 71045; 72125; 73502; 80048; 80076; 81001; 82550; 83605; 83690; 83735; 84484; 85025; 85027; 85610; 86850; 86900; 86901; 87040; 87635; 92610; 93005; 96374; 96375; 97162; 97166; 99285; C1713; C1758; C1769; J0690; J1170; J1650; J2270; J2370; J2405; J3010